=== PATIENT | female | born 1955 ===

== ENCOUNTER → 2018-01-02 14:31 | Outpatient (REF) | payer OTHER, SELFPAY ==
[2018-01-02 14:57] LABS: Glucose 105 mg/dL (80-110)
[2018-01-02 15:29] LABS: Testosterone 37.9 ng/dL (5.71-77.0)
[2018-01-04 16:11] LABS: Dehydroepiandrosterone Sulfate 190 mcg/dL (12-133)
== END ==
LOC: LAB 14:31
PROVIDERS: Visit Provider Naturopath
DX: R53.83 Other fatigue (principal); R14.0 Abdominal distension (gaseous); R73.01 Impaired fasting glucose; E78.2 Mixed hyperlipidemia; K90.41 Non-celiac gluten sensitivity; T78.07XA Anaphylactic reaction due to milk and dairy products, initial encounter; Z91.02 Food additives allergy status
CPT/HCPCS: 36415; 82627; 82947; 84144; 84403